=== PATIENT | male | born 1950 | race Hispanic/Latino ===

== ENCOUNTER → 2017-09-26 | Day surgery (SDC) | payer OTHER ==
[2017-09-19 10:48] LABS: BASOPHILS % 0.6 % (0.0-1.0); EOSINOPHILS # (AUTO) 0.2 (0.0-0.4); HEMATOCRIT 42.2 % (38.2-49.6); HEMOGLOBIN 14.8 g/dL (14.0-18.0); LYMPHOCYTES # (AUTO) 0.7 (1.0-3.2); LYMPHOCYTES % 13.8 % (18.0-39.1); MEAN CORPUSCULAR HEMOGLOBIN 37.2 pg (28-32); MEAN CORPUSCULAR HGB CONC 35.1 g/dL (31-35); MONOCYTES # (AUTO) 0.6 (0.2-0.8); MONOCYTES % 12.6 % (4.4-11.3); NEUTROPHILS # (AUTO) 3.5 (2.1-6.9); NEUTROPHILS % 69.6 % (38.7-80.0); PLATELET COUNT 72 x10e3/uL (140-360); RED BLOOD COUNT 3.98 x10e6/uL (4.3-5.7)
[2017-09-19 10:58] LABS: INR 1.21; PARTIAL THROMBOPLASTIN TIME 29.3 seconds (23.8-35.5); PROTHROMBIN TIME 14.4 seconds (11.9-14.5)
[2017-09-19 11:07] LABS: ALBUMIN 3.5 g/dL (3.5-5.0); ALBUMIN/GLOBULIN RATIO 0.7 (0.8-2.0); ANION GAP 13.4 mmol/L (8-16); CALCIUM 9.8 mg/dL (8.4-10.2); CREATININE, SERUM 1.22 mg/dL (0.72-1.25); POTASSIUM 5.4 mmol/L (3.5-5.1)
[~2017-09-26] MED LIST: AMLODIPINE BESY10 MG PO; BENAZEPRIL HCL10 MG PO; CARTIA XT240 MG PO; CONSTULOSE10 GM/15 M PO; FENTANYL CITRATE/PF 100MCG/2 ML INJ ONE; FUROSEMIDE20 MG PO; GLIMEPIRIDE2 MG PO; HYDROCHLOROTHIA25 MG PO; IPRATROPIU0.2 MG/1 M NEB; KETAMINE HCL INJ 50 MG/ML 10 ML VIAL ONE; LACTULOSE20 GM/30 M PO; LEVEMIR100 UNIT/1 SQ; LIDOCAINE HCL 2% LOCAL INJ 5 ML SDV VIAL INJ ONE; LISINOPRIL-HCT1 EAC2 PO; METFORMIN HCL500 MG PO; MIDAZOLAM HCL 2 MG/2 ML VIAL ONE; OMEPRAZOLE40 MG PO; PROPOFOL IV EMULSION 10 MG/ML 20 ML VIAL ONE; PROPRANOLOL HCL10 MG PO; SIMVASTATIN20 MG PO; SPIRONOLACTONE25 MG PO; XIFAXAN550 MG PO
== END | disposition home or self-care (01) ==
LOC: OR 05:30
PROVIDERS: ATTEND Internal Medicine Gastroenterology
DX: K70.30 Alcoholic cirrhosis of liver without ascites (principal); I85.10 Secondary esophageal varices without bleeding; K29.70 Gastritis, unspecified, without bleeding; K25.9 Gastric ulcer, unspecified as acute or chronic, without hemorrhage or perforation; K21.9 Gastro-esophageal reflux disease without esophagitis; K76.6 Portal hypertension; E66.9 Obesity, unspecified; E11.9 Type 2 diabetes mellitus without complications; I10 Essential (primary) hypertension; I44.0 Atrioventricular block, first degree; Z01.810 Encounter for preprocedural cardiovascular examination; Z01.812 Encounter for preprocedural laboratory examination; Z79.4 Long term (current) use of insulin; Z68.35 Body mass index [BMI] 35.0-35.9, adult; Z86.2 Personal history of diseases of the blood and blood-forming organs and certain disorders involving the immune mechanism; Z87.891 Personal history of nicotine dependence
CPT/HCPCS: 36415 ×2; 43244; 80053; 82948; 84132; 85025; 85610; 85730; 93005; J2001; J2250; 43239

== ENCOUNTER → 2018-02-07 | Outpatient (CLI) | payer MEDICARE, OTHER ==
[~2018-02-07] MED LIST changes: -FENTANYL CITRATE/PF 100MCG/2 ML INJ ONE; -KETAMINE HCL INJ 50 MG/ML 10 ML VIAL ONE; -LIDOCAINE HCL 2% LOCAL INJ 5 ML SDV VIAL INJ ONE; -MIDAZOLAM HCL 2 MG/2 ML VIAL ONE; -PROPOFOL IV EMULSION 10 MG/ML 20 ML VIAL ONE
--- NOTE | 2018-02-07 12:42 | Diagnostic Imaging Report ---
EXAM: Complete Abdominal Ultrasound INDICATION: Esophageal varices. Cirrhosis. COMPARISON: None. TECHNIQUE: Transverse and longitudinal images of the upper abdomen were obtained. FINDINGS: Liver: Size: 15.3 cm in the right midclavicular line, normal Appearance: Diffuse coarsened echotexture., Nodular contour Mass: No focal masses Spleen: Size: 14.8 cm in length, enlarged. Echogenicity: Normal Mass: No focal masses Gallbladder: Stones/Sludge: Multiple calculi. Wall: 0.3 cm Appearance: No wall thickening, pericholecystic fluid or hydrops. Sonographic Saldivar's Sign: Negative Bile Ducts: Intrahepatic Ducts: No dilatation Extrahepatic Ducts: Common bile duct measures 0.3 cm, no dilatation Pancreas: Not well visualized due to shadowing from overlying bowel gas. Kidneys: Length: Right 11.8 cm Left 12.8 cm Echogenicity: Normal Collecting System: No hydronephrosis Stone: None Cyst/Mass: None Vessels: Aorta: Not well visualized due to shadowing from overlying bowel gas. Inferior Vena Cava: Not well visualized due to shadowing from overlying bowel gas. Main Portal Vein: 0.9 cm, normal size with hepatopetal flow. Free Fluid: No ascites or pleural effusion IMPRESSION: 1. Cirrhotic hepatic morphology. No focal lesions identified. 2. Cholelithiasis. No biliary dilatation. 3. Mild splenomegaly. Signed by: Dr. Marisela Braun M.D. on 02/07/2018 12:38 PM
== END ==
LOC: US 11:46
PROVIDERS: ATTEND Internal Medicine Gastroenterology
DX: I85.00 Esophageal varices without bleeding (principal); K70.30 Alcoholic cirrhosis of liver without ascites; E11.9 Type 2 diabetes mellitus without complications; I10 Essential (primary) hypertension; E66.9 Obesity, unspecified; Z71.3 Dietary counseling and surveillance
CPT/HCPCS: 76700

== ENCOUNTER → 2018-04-10 | Day surgery (SDC) | payer MEDICARE, OTHER ==
[2018-04-07 10:43] LABS: BASOPHILS % 0.7 % (0.0-1.0); EOSINOPHILS # (AUTO) 0.2 (0.0-0.4); EOSINOPHILS % 3.4 % (0.0-6.0); HEMATOCRIT 41.9 % (38.2-49.6); LYMPHOCYTES # (AUTO) 0.6 (1.0-3.2); LYMPHOCYTES % 12.5 % (18.0-39.1); MEAN CORPUSCULAR HEMOGLOBIN 35.8 pg (28-32); MEAN CORPUSCULAR HGB CONC 33.4 g/dL (31-35); MEAN CORPUSCULAR VOLUME 107.2 fL (81-99); MONOCYTES # (AUTO) 0.5 (0.2-0.8); MONOCYTES % 11.4 % (4.4-11.3); NEUTROPHILS # (AUTO) 3.2 (2.1-6.9); NEUTROPHILS % 71.8 % (38.7-80.0); PLATELET COUNT 66 x10e3/uL (140-360); RED BLOOD COUNT 3.91 x10e6/uL (4.3-5.7); RED CELL DISTRIBUTION WIDTH 13.7 % (11.7-14.4)
[2018-04-07 10:47] LABS: PROTHROMBIN TIME 14.1 seconds (11.9-14.5)
[2018-04-07 10:48] LABS: PARTIAL THROMBOPLASTIN TIME 31.9 seconds (23.8-35.5)
[2018-04-07 10:54] LABS: ALBUMIN 3.2 g/dL (3.5-5.0); ALBUMIN/GLOBULIN RATIO 0.7 (0.8-2.0); ANION GAP 10.5 mmol/L (8-16); CALCIUM 8.3 mg/dL (8.4-10.2); CREATININE, SERUM 1.21 mg/dL (0.72-1.25); POTASSIUM 4.5 mmol/L (3.5-5.1)
[~2018-04-10] MED LIST changes: +DEXTROSE 5% 250ML 250 ML IV ONE; +FENTANYL CITRATE/PF 100MCG/2 ML INJ ONE; +GABAPENTIN300 MG PO; +LASIX20 MG PO; +MIDAZOLAM HCL 2 MG/2 ML VIAL ONE; +PROPOFOL IV EMULSION 10 MG/ML 50 ML VIAL ONE
--- OUTSIDE RECORDS SUMMARY | 2018-04-10 05:29 | XMS REPORT ---
Author [facility] Address Unknown Phone Unavailable Care Team Providers Care Scooter Mechanic Name Role Phone Susan SALMON Unavailable Unavailable Problems This patient has no known problems. Allergies, Adverse Reactions, Alerts This patient has no known allergies or adverse reactions. Medications This patient has no known medications. Results Test Description Test Time Test Comments Text Results Atomic Results Result Comments US ABDOMEN COMPLETE 2018-02-07 12:35:00 [place] [address] Patient Name: ORIN MYERS MR #: [id number] : 1950 Age/Sex: 67/M Req #: [id number] [facility] Physician: Ordered by: KIM SALMON MD Report #: [id number] Location: Room/Bed: Procedure: [id number] US/US ABDOMEN COMPLETE Exam Date: 02/07/18 Exam Time: 1157 REPORT STATUS: Signed EXAM: Complete Abdominal Ultrasound INDICATION: Esophageal varices. Cirrhosis. COMPARISON: None. TECHNIQUE: Transverse and longitudinal images of the upper abdomen were obtained. FINDINGS: Liver: Size: 15.3 cm in the right midclavicular line, normal Appearance: Diffuse coarsened echotexture., Nodular contour Mass: No focal masses Spleen: Size: 14.8 cm in length, enlarged. Echogenicity: Normal Mass: No focal masses Gallbladder: Stones/Sludge: Multiple calculi. Wall: 0.3 cm Appearance: No wall thickening, pericholecystic fluid or hydrops. Sonographic Saldivar's Sign: Negative Bile Ducts: Intrahepatic Ducts: No dilatation Extrahepatic Ducts: Common bile duct measures 0.3 cm, no dilatation Pancreas: Not well visualized due to shadowing from overlying bowel gas. Kidneys: Length: Right 11.8 cm Left 12.8 cm Echogenicity: Normal Collecting System: No hydronephrosis Stone: None Cyst/Mass: None Vessels: Aorta: Not well visualized due to shadowing from overlying bowel gas. Inferior Vena Cava: Not well visualized due to shadowing from overlying bowel gas. Main Portal Vein: 0.9 cm, normal size with hepatopetal flow. Free Fluid: No ascites or pleural effusion IMPRESSION: 1. Cirrhotic hepatic morphology. No focal lesions identified. 2. Cholelithiasis. No biliary dilatation. 3. Mild splenomegaly. Signed by: Dr. Marisela Garcia M.D. on 02/07/2018 12:38 PM Dictated By: MARIA FERNANDA GARCIA MD, MD [id number] Transcribed By: TUYET on 02/07/18 1238 COPY TO: KIM SALMON MD
[2018-04-10 08:05] VITALS: BP 149/84
== END | disposition home or self-care (01) ==
LOC: OR 05:27
PROVIDERS: ATTEND Internal Medicine Gastroenterology
DX: K70.30 Alcoholic cirrhosis of liver without ascites (principal); I85.10 Secondary esophageal varices without bleeding; K29.70 Gastritis, unspecified, without bleeding; K76.6 Portal hypertension; Z71.3 Dietary counseling and surveillance; E66.9 Obesity, unspecified; E11.9 Type 2 diabetes mellitus without complications; I10 Essential (primary) hypertension; K25.9 Gastric ulcer, unspecified as acute or chronic, without hemorrhage or perforation; I44.0 Atrioventricular block, first degree; F41.9 Anxiety disorder, unspecified; Z01.810 Encounter for preprocedural cardiovascular examination; Z01.812 Encounter for preprocedural laboratory examination; Z79.4 Long term (current) use of insulin; Z68.35 Body mass index [BMI] 35.0-35.9, adult; Z87.891 Personal history of nicotine dependence
CPT/HCPCS: 36415 ×2; 43244; 80053; 82948; 85025; 85610; 85730; 93005; J2250; J7070; 43239

== ENCOUNTER → 2018-10-23 | Day surgery (SDC) | payer MEDICARE, OTHER ==
[2018-10-13 11:36] LABS: BASOPHILS % 0.7 % (0.0-1.0); EOSINOPHILS # (AUTO) 0.2 (0.0-0.4); EOSINOPHILS % 4.5 % (0.0-6.0); HEMATOCRIT 39.5 % (38.2-49.6); HEMOGLOBIN 13.7 g/dL (14.0-18.0); LYMPHOCYTES # (AUTO) 0.6 (1.0-3.2); LYMPHOCYTES % 13.9 % (18.0-39.1); MEAN CORPUSCULAR HEMOGLOBIN 37.6 pg (28-32); MEAN CORPUSCULAR HGB CONC 34.7 g/dL (31-35); MEAN CORPUSCULAR VOLUME 108.5 fL (81-99); MONOCYTES # (AUTO) 0.4 (0.2-0.8); MONOCYTES % 8.9 % (4.4-11.3); NEUTROPHILS # (AUTO) 3.2 (2.1-6.9); NEUTROPHILS % 71.6 % (38.7-80.0); PLATELET COUNT 60 x10e3/uL (140-360); RED BLOOD COUNT 3.64 x10e6/uL (4.3-5.7); RED CELL DISTRIBUTION WIDTH 13.3 % (11.7-14.4)
[2018-10-13 11:48] LABS: INR 0.99; PROTHROMBIN TIME 13.6 seconds (11.9-14.5)
[2018-10-13 11:49] LABS: PARTIAL THROMBOPLASTIN TIME 25.6 seconds (23.8-35.5)
[2018-10-13 11:58] LABS: ALANINE AMINOTRANSFERASE 37 IU/L (0-55); ALBUMIN 3.3 g/dL (3.5-5.0); ALBUMIN/GLOBULIN RATIO 0.7 (0.8-2.0); ALKALINE PHOSPHATASE 200 IU/L (40-150); ANION GAP 15.1 mmol/L (8-16); BLOOD UREA NITROGEN 17 mg/dL (7-26); BUN/CREATININE RATIO 16 (6-25); CARBON DIOXIDE 22 mmol/L (22-29); CHLORIDE 103 mmol/L (98-107); CREATININE, SERUM 1.08 mg/dL (0.72-1.25); EST GLOMERULAR FILTRATION RATE > 60 ML/MIN (60-); GLUCOSE 198 mg/dL (74-118); POTASSIUM 4.1 mmol/L (3.5-5.1); SODIUM 136 mmol/L (136-145)
[~2018-10-23] MED LIST changes: -DEXTROSE 5% 250ML 250 ML IV ONE; -FENTANYL CITRATE/PF 100MCG/2 ML INJ ONE; -MIDAZOLAM HCL 2 MG/2 ML VIAL ONE
--- OUTSIDE RECORDS SUMMARY | 2018-10-23 05:33 | XMS REPORT | Summary of Care ---
Author Author [facility] Organization [facility] Address Unknown Phone Unavailable Encounter HQ [place](VICENTE) [id number] Date(s): 11/08/16 - 11/08/16 [facility] [address], [place] [address] [phone] Discharge Disposition: Home or Self Care Attending Physician: Saniya Kumari NP Referring Physician: Saniya Kumari NP Vital Signs No data available for this section Problem List Condition Effective Dates Status Health Status Informant Alcoholic cirrhosis Active of liver(Confirmed) Ascites(Confirmed) Active Esophageal varices Active with bleeding(Confirmed) Gallstones(Confirmed Resolved ) Anasarca(Confirmed) Active Chronic Active GERD(Confirmed) Encephalopathy, Active hepatic(Confirmed) High blood Active pressure(Confirmed) COPD, Active mild(Confirmed) Obesity(Confirmed) Active DM (diabetes Active mellitus), type 2(Confirmed) Allergies, Adverse Reactions, Alerts Substance Reaction Severity Status NKDA Active Medications No data available for this section Results No data available for this section Immunizations No data available for this section Procedures No data available for this section Social History Social History Type Response Alcohol Never Smoking Status Never smoker; Type: Cigarettes; Previous treatment: None; Ready to change: No; Concerns about tobacco use in household: No; Exposure to Tobacco Smoke None; Cigarette Smoking Last 365 Days No; Reg Smoking Cessation Counseling No Assessment and Plan No data available for this section
--- OUTSIDE RECORDS SUMMARY | 2018-10-23 05:33 | XMS REPORT | Summary of Care ---
Author Author [facility] Organization [facility] Address Unknown Phone Unavailable Encounter HQ [place](VICENTE) [id number] Date(s): 10/30/16 - 10/30/16 [facility] [address] [place] [address]- [facility] [phone] Discharge Disposition: Home or Self Care Attending Physician: Tremayne Glasgow MD Referring Physician: Tremayne Glasgow MD Vital Signs Most recent to 1 oldest [Reference Range]: Height 182.88 cm (10/30/16 10:48 AM) Weight 116.364 kg (10/30/16 10:48 AM) Body Mass Index 34.79 m2 (10/30/16 10:48 AM) Problem List Condition Effective Dates Status Health Status Informant Alcoholic cirrhosis Active of liver(Confirmed) Ascites(Confirmed) Active Bleeding esophageal Active varices(Confirmed) Esophageal varices Active with bleeding(Confirmed) Gallstones(Confirmed Resolved ) Anasarca(Confirmed) Active Chronic Active GERD(Confirmed) Encephalopathy, Active hepatic(Confirmed) High blood Active pressure(Confirmed) COPD, Active mild(Confirmed) Obesity(Confirmed) Active DM (diabetes Active mellitus), type 2(Confirmed) Allergies, Adverse Reactions, Alerts Substance Reaction Severity Status NKDA Active Medications No Known Medications Results No data available for this section [...]
--- OUTSIDE RECORDS SUMMARY | 2018-10-23 05:33 | XMS REPORT | Continuity of Care Document ---
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 abdominal aorta and iliac arteries. No aneurysm is present. Bones: Moderately severe osteophyte formation is present in the lower thoracic spine and thoracolumbar junction. There is bilateral L5 spondylolysis with grade 1 anterolisthesis of L5 on S1. No suspicious lytic or blastic lesions are present. Soft tissues: Normal. IMPRESSION: 1. Moderately scalloped margins of the liver suggest underlying cirrhosis. 2. Splenomegaly and dilatation of the portal vein which likely represent early signs of portal venous hypertension. 3. Cholelithiasis. 4. Bilateral L5 spondylolysis with grade 1 anterolisthesis of L5 on S1. 5. Low-density lesion in pancreatic tail possibly representing a cystic pancreatic lesion such as IPMN. Suggest routine cross-sectional surveillance. 03/28/2016 ANDREW Bray Consultation Notes No Data Provided for This Section Discharge Summaries No Data Provided for This Section History and Physicals No Data Provided for This Section Vital Signs Vital Sign Value Date Comments Source Height 182.88 cm 06/03/2018 [facility] BMI Calculated 35.54 06/03/2018 [facility] Weight 118.864 06/03/2018 [facility] Heart Rate 58 06/03/2018 [facility] Systolic (mm Hg) 130 06/03/2018 [facility] Diastolic (mm Hg) 69 06/03/2018 [facility] Height 182.88 cm 11/26/2017 [facility] Weight 119.364 11/26/2017 [facility] BMI Calculated 35.69 11/26/2017 [facility] Systolic (mm Hg) 131 11/26/2017 [facility] Diastolic (mm Hg) 63 11/26/2017 [facility] Heart Rate 58 11/26/2017 [facility] Respitory Rate 16 11/26/2017 [facility] Weight 114.545 05/07/2017 [facility] BMI Calculated 34.25 05/07/2017 [facility] Height 182.88 cm 05/07/2017 [facility] Respitory Rate 16 05/07/2017 [facility] Heart Rate 66 05/07/2017 [facility] Systolic (mm Hg) 154 05/07/2017 [facility] Diastolic (mm Hg) 78 05/07/2017 [facility] BMI Calculated 34.79 10/30/2016 [facility] Weight 116.364 10/30/2016 [facility] Height 182.88 cm 10/30/2016 [facility] Height 187.96 cm 07/03/2016 [facility] Weight 118.182 07/03/2016 [facility] BMI Calculated 33.45 07/03/2016 [facility] Systolic (mm Hg) 128 02/28/2016 [facility] Diastolic (mm Hg) 70 02/28/2016 [facility] Heart Rate 46 02/28/2016 [facility] Temperature Oral (F) 97.1 F 02/28/2016 [facility] Weight 111.08 02/28/2016 [facility] BMI Calculated 33.21 02/28/2016 [facility] Height 182.88 cm 02/28/2016 [facility] Weight 113.636 12/14/2015 [facility] Temperature Oral (F) 98.5 F 12/14/2015 [facility] Height 182.88 cm 12/14/2015 [facility] BMI Calculated 33.98 12/14/2015 [facility] Heart Rate 58 12/14/2015 [facility] Respitory Rate 16 12/14/2015 [facility] Systolic (mm Hg) 111 12/14/2015 [facility] Diastolic (mm Hg) 68 12/14/2015 [facility] Encounters Location Location Details Encounter Type Encounter Number Reason For Visit Attending Provider ADM Date DC Date Status Source [facility] Emergency [id number] Sajan Mascorro 12/14/2015 12/14/2015 [facility] Outpatient [id number] Tremayne Glasgow 02/28/2016 02/29/[address] [facility] Outpatient Imaging [facility] [id number] Tremayne Glasgow 03/28/2016 03/29/2016 [facility] Outpatient [id number] Tremayne Glasgow 07/03/2016 07/04/2016 [facility] Outpatient [id number] Tremayne Glasgow 10/30/2016 10/31/2016 [facility] Outpatient [id number] Saniya Kumari 11/08/2016 11/09/2016 [facility] Outpatient [id number] Tremayne Glasgow 05/07/2017 05/08/2017 [facility] Outpatient [id number] Tremayne Glasgow 05/21/2017 05/22/2017 [facility] Outpatient [id number] Tremayne Glasgow 11/26/2017 11/27/2017 [facility] Outpatient [id number] Tremayne Glasgow 12/03/2017 12/04/2017 [facility] [place] Outpatient [id number] Tremayne Glasgow 06/03/2018 06/04/[address] [facility] Outpatient Imaging [facility] Diag Services [id number] Tremayne Glasgow 06/18/2018 06/19/2018 [id number] Procedures Procedure Code Date Perfomer Comments Source Colonoscopy [id number] [facility] Procedure on ankle [id number] [facility] Procedure on bone of skull<sup>1</sup> [id number] [facility] Upper GI endoscopy [id number] [facility] Colonoscopy [id number] Procedure on ankle [id number] Procedure on bone of skull<sup>1</sup> [id number] [facility] [id number] Upper GI endoscopy [id number] Colonoscopy [id number] [facility] Procedure on ankle [id number] [facility] Procedure on bone of skull<sup>1</sup> [id number] [facility] Upper GI endoscopy [id number] [facility] Assessment and Plan No Data Provided for This Section Plan of Care No Data Provided for This Section Social History Social History Date Source Social History TypeResponse Alcohol Never Smoking Status Former smoker; Type: Cigarettes; Previous treatment: None; Ready to change: No; Concerns about tobacco use in household: No; Exposure to Tobacco Smoke None; Cigarette Smoking Last 365 Days No; Reg Smoking Cessation Counseling No1 entered on: 06/03/18 1Quit smoking 3-4 years 07/03/2016 [facility] Social History TypeResponse Alcohol Never Smoking Status Former smoker; Type: Cigarettes; Previous treatment: None; Ready to change: No; Concerns about tobacco use in household: No; Exposure to Tobacco Smoke None; Cigarette Smoking Last 365 Days No; Reg Smoking Cessation Counseling No1 entered on: 06/03/18 1Quit smoking 3-4 years 07/03/2016 [facility] Social History TypeResponse Alcohol Never Smoking Status Former smoker; Type: Cigarettes; Previous treatment: None; Ready to change: No; Concerns about tobacco use in household: No; Exposure to Tobacco Smoke None; Cigarette Smoking Last 365 Days No; Reg Smoking Cessation Counseling No1 entered on: 06/03/18 1Quit smoking 3-4 years 07/03/2016 [id number] Social History TypeResponse Smoking Status Never smoker; Type: Cigarettes; Previous treatment: None; Ready to change: No; Concerns about tobacco use in household: No; Exposure to Tobacco Smoke None; Cigarette Smoking Last 365 Days No; Reg Smoking Cessation Counseling No 02/28/2016 ANDREW Bray Family History No Data Provided for This Section Advance Directives No Data Provided for This Section Functional Status No Data Provided for This Section
--- OUTSIDE RECORDS SUMMARY | 2018-10-23 05:34 | XMS REPORT | Summary of Care ---
Author Author [facility] Organization [facility] Address Unknown Phone Unavailable Encounter ZACK Franco(VICENTE) [id number] Date(s): 12/14/15 - 12/14/15 [facility] [address] [facility] provided by [facility] [place] [address]- Discharge Diagnosis: Leg swelling Discharge Diagnosis: Penile swelling Discharge Disposition: Home or Self Care Attending Physician: Sajan Mascorro MD Admitting Physician: Sajan Mascorro MD Vital Signs Most recent to 1 oldest [Reference Range]: Height 182.88 cm (12/14/15 1:28 AM) Temperature Oral 98.5 DegF [96.4-99.1 DegF] (12/14/15 1:28 AM) Blood Pressure 111/68 mmHg [90-140/60-90 mmHg] (12/14/15 1:28 AM) Respiratory Rate 16 BRMIN [14-20 BRMIN] (12/14/15 1:28 AM) Peripheral Pulse 58 bpm Rate [60-100 bpm] *LOW* (12/14/15 1:28 AM) Weight 113.636 kg (12/14/15 1:28 AM) Body Mass Index 33.98 m2 (12/14/15 1:28 AM) Problem List Condition Effective Dates Status Health Status Informant Chronic liver Active failure(Confirmed) Allergies, Adverse Reactions, Alerts Substance Reaction Severity Status NKDA Active Medications No data available for this section Results No data available for this section Immunizations No data available for this section Procedures No data available for this section Social History Social History Type Response Smoking Status Never smoker; Type: Cigarettes; Previous treatment: None; Ready to change: No; Concerns about tobacco use in household: No; Exposure to Tobacco Smoke None; Cigarette Smoking Last 365 Days No; Reg Smoking Cessation Counseling No Assessment and Plan No data available for this section
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
--- OUTSIDE RECORDS SUMMARY | 2018-10-23 05:34 | XMS REPORT | Summary of Care ---
Author Author [facility] Organization [facility] Address Unknown Phone Unavailable Encounter ZACK Franco(VICENTE) [id number] Date(s): 05/07/17 - 05/07/17 [facility] [address] [phone] Encounter Diagnosis Nonalcoholic steatohepatitis (AWAD) (Final) - 05/13/17 Unspecified cirrhosis of liver (Final) - Secondary esophageal varices with bleeding (Final) - Hepatic failure, unspecified without coma (Final) - Other ascites (Final) - Bradycardia, unspecified (Final) - Discharge Disposition: Home or Self Care Attending Physician: Tremayne Glasgow MD Referring Physician: Tremayne Glasgow MD Vital Signs Most recent to 1 oldest [Reference Range]: Height 182.88 cm (05/07/17 9:56 AM) Blood Pressure 154/78 mmHg [90-140/60-90 mmHg] *HI* (05/07/17 9:56 AM) Respiratory Rate 16 BRMIN [14-20 BRMIN] (05/07/17 9:56 AM) Peripheral Pulse 66 bpm Rate [60-100 bpm] (05/07/17 9:56 AM) Weight 114.545 kg (05/07/17 9:56 AM) Body Mass Index 34.25 m2 (05/07/17 9:56 AM) Problem List Condition Effective Dates Status Health Status Informant Alcoholic cirrhosis Active of liver(Confirmed) Ascites(Confirmed) Active Esophageal varices Active with bleeding(Confirmed) Gallstones(Confirmed Resolved ) Anasarca(Confirmed) Active Chronic Active GERD(Confirmed) Encephalopathy, Active hepatic(Confirmed) High blood Active pressure(Confirmed) COPD, Active mild(Confirmed) Obesity(Confirmed) Active DM (diabetes Active mellitus), type 2(Confirmed) Allergies, Adverse Reactions, Alerts Substance Reaction Severity Status NKDA Active Medications amLODIPine 10 mg oral tablet 10 mg=1 tab, PO, Daily, # 30 tab, 0 Refill(s) Start Date: 05/07/17 Status: Ordered spironolactone 25 mg oral tablet 25 mg=1 tab, PO, BID, # 30 tab, 3 Refill(s) Start Date: 05/07/17 Stop Date: 06/06/17 Status: Ordered Results No data available for this section [...] Days No; Reg Smoking Cessation Counseling No entered on: 05/07/17 Assessment and Plan No data available for this section
--- OUTSIDE RECORDS SUMMARY | 2018-10-23 05:34 | XMS REPORT | Summary of Care ---
Author Author [facility] Organization [facility] Address Unknown Phone Unavailable Encounter ZACK Franco(VICENTE) [id number] Date(s): 02/28/16 - 02/28/16 [facility] [address] [place] [address]- [facility] [phone] Discharge Disposition: Home or Self Care Attending Physician: Tremayne Glasgow MD Referring Physician: Tremayne Glasgow MD Vital Signs Most recent to 1 oldest [Reference Range]: Height 182.88 cm (02/28/16 7:51 AM) Temperature Oral 97.1 DegF [96.4-99.1 DegF] (02/28/16 7:51 AM) Blood Pressure 128/70 mmHg [90-140/60-90 mmHg] (02/28/16 7:51 AM) Peripheral Pulse 46 bpm Rate [60-100 bpm] *LOW* (02/28/16 7:51 AM) Weight 111.08 kg (02/28/16 7:51 AM) Body Mass Index 33.21 m2 (02/28/16 7:51 AM) Problem List Condition Effective Dates Status Health Status Informant Alcoholic cirrhosis Active of liver(Confirmed) Ascites(Confirmed) Active Bleeding esophageal Active varices(Confirmed) Esophageal varices Active with bleeding(Confirmed) Gallstones(Confirmed Resolved ) Anasarca(Confirmed) Active Chronic Active GERD(Confirmed) High blood Active pressure(Confirmed) COPD, Active mild(Confirmed) Obesity(Confirmed) Active DM (diabetes Active mellitus), type 2(Confirmed) Allergies, Adverse Reactions, Alerts Substance Reaction Severity Status NKDA Active Medications ferrous sulfate 325 mg oral enteric coated tablet 325 mg=1 tab, PO, Daily, 0 Refill(s) Start Date: 02/28/16 Stop Date: 02/28/16 Status: Discontinued folic acid 1 mg oral tablet 1 mg=1 tab, PO, Daily, 0 Refill(s) Start Date: 02/28/16 Stop Date: 02/28/16 Status: Discontinued furosemide 80 mg oral tablet 80 mg=1 tab, PO, Daily, 0 Refill(s) Start Date: 02/28/16 Status: Ordered glimepiride 4 mg oral tablet 4 mg=1 tab, PO, Daily, 0 Refill(s) Start Date: 02/28/16 Status: Ordered Levemir FlexPen 10 unit, SUB-Q, 0 Refill(s) Start Date: 02/28/16 Status: Ordered omeprazole 40 mg oral delayed release capsule 40 mg=1 cap, PO, BID, 0 Refill(s) Start Date: 02/28/16 Status: Ordered propranolol 10 mg oral tablet 10 mg=1 tab, PO, BID, 0 Refill(s) Start Date: 02/28/16 Status: Ordered simvastatin 20 mg oral tablet 20 mg=1 tab, PO, Bedtime, 0 Refill(s) Start Date: 02/28/16 Status: Ordered Results No data available for [...]
--- OUTSIDE RECORDS SUMMARY | 2018-10-23 05:34 | XMS REPORT | Summary of Care ---
Author Author [facility] Organization [facility] Address Unknown Phone Unavailable Encounter ZACK Franco(VICENTE) [id number] Date(s): 05/07/17 - 05/07/17 [facility] [address] [phone] Encounter Diagnosis Nonalcoholic steatohepatitis (AWAD) (Final) - 05/13/17 Unspecified cirrhosis of liver (Final) - Secondary esophageal varices with bleeding (Final) - Hepatic failure, unspecified without coma (Final) - Other ascites (Final) - Bradycardia, unspecified (Final) - Discharge Disposition: Home or Self Care Attending Physician: Trmeayne Glasgow MD Referring Physician: Tremayne Glasgow MD [...]
--- OUTSIDE RECORDS SUMMARY | 2018-10-23 05:34 | XMS REPORT | Summary of Care ---
Author Author [facility] Organization [facility] Address Unknown Phone Unavailable Encounter ZACK Franco(VICENTE) [id number] Date(s): 11/26/17 - 11/26/17 [facility] [address] [place] [address]- [facility] [phone] Encounter Diagnosis Chronic obstructive pulmonary disease, unspecified [...] Daily, # 30 tab, 3 Refill(s), Pharmacy: [facility] Start Date: 04/03/18 Status: Ordered furosemide 20 mg oral tablet 20 mg=1 tab, PO, Daily, # 30 tab, 3 Refill(s), Pharmacy: [facility] Start Date: 12/06/17 Stop Date: 04/03/18 Status: Completed spironolactone 25 mg oral tablet 50 mg=2 tab, PO, Daily, # 60 tab, 3 Refill(s), Pharmacy: [facility] Start Date: 12/06/17 Stop Date: 04/05/18 [...] PM) Albumin Lvl [3.5-5.0 3.5 g/dL g/dL] (11/26/17:25 PM) Globulin [2.7-4.2 4.6 g/dL g/dL] *HI* (11/26/17:25 PM) A/G Ratio [0.7-1.6] 0.8 (11/26/17:25 PM) Calcium Lvl 8.6 mg/dL [8.5-10.5 mg/dL] (11/26/17:25 PM) ALT [0-65 unit/L] 56 unit/L (11/26/17 [...] (11/26/17:25 PM) Hgb [14.0-18.0 g/dL] 14.2 g/dL (11/26/17:25 PM) Hct [42.0-54.0 %] 40.7 % *LOW* [...] PM) Lymphocytes 13.6 % [20.0-40.0 %] *LOW* (11/26/17:25 PM) Monocytes [2.0-12.0 11.0 % %] (11/26/17 [...] Reg Smoking Cessation Counseling No entered on: 11/26/17 Assessment and Plan No data available for this section
--- OUTSIDE RECORDS SUMMARY | 2018-10-23 05:34 | XMS REPORT | Summary of Care ---
Author Author [facility] Organization [facility] Address Unknown Phone Unavailable Encounter ZACK Franco(VICENTE) [id number] Date(s): 05/21/17 - 05/21/17 [facility] [address] [place] [address]- Encounter Diagnosis Generalized edema (Final) - 05/24/17 Alcoholic cirrhosis of liver with ascites (Final) - Hepatic failure, unspecified without coma (Final) - Calculus of gallbladder without cholecystitis without obstruction (Final) - Splenomegaly, not elsewhere classified (Final) - Spondylolysis, lumbosacral region (Final) - Atherosclerotic heart disease of [place] coronary artery without angina pectoris (Final) - Discharge Disposition: Home or Self Care Attending Physician: Tremayne Glasgow MD Referring Physician: Tremayne Glasgow MD Vital Signs No data available for this [...] Substance Reaction Severity Status NKDA Active Medications Omnipaque 350 100 mL, Route: IV, Drug Form: SOLN, ONCALL, Start date: 05/21/17 21:00:00 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 Immunizations No data available for this section [...]
--- OUTSIDE RECORDS SUMMARY | 2018-10-23 05:34 | XMS REPORT | Summary of Care ---
Author Author [facility] Organization [facility] Address Unknown Phone Unavailable Encounter ZACK Franco(VICENTE) [id number] Date(s): 05/21/17 - 05/21/17 [facility] [address] [place] [address]- [phone] Encounter Diagnosis Generalized edema (Final) - 05/24/17 Alcoholic cirrhosis of liver with ascites (Final) - Hepatic failure, unspecified without coma (Final) - Calculus of gallbladder without cholecystitis without obstruction (Final) - Splenomegaly, not elsewhere classified (Final) - Spondylolysis, lumbosacral region (Final) - Atherosclerotic heart disease of [place] coronary artery without angina pectoris (Final) - [...] Form: SOLN, ONCALL, Start date: 05/21/17 21:00:00 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
--- OUTSIDE RECORDS SUMMARY | 2018-10-23 05:34 | XMS REPORT | Summary of Care ---
Author Author [facility] Organization [facility] Address Unknown Phone Unavailable Encounter HQ Salvador(FIN) [id number] Date(s): 12/03/17 - 12/03/17 [facility] [address] [place] [address]- [phone] Encounter Diagnosis Alcoholic cirrhosis of liver without ascites (Final) - 02/15/18 Calculus of gallbladder without cholecystitis without obstruction (Final) - Unspecified cirrhosis of liver (Final) - Discharge Disposition: Home or Self Care Attending Physician: Tremayne Glasgow MD Admitting Physician: Tremayne Glasgow MD Referring Physician: Tremayne [...]
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
--- OUTSIDE RECORDS SUMMARY | 2018-10-23 05:34 | XMS REPORT | Summary of Care ---
Author Author [facility] Organization [facility] Address Unknown Phone Unavailable Encounter HQ Salvador(VICENTE) [id number] Date(s): 03/28/16 - 03/28/16 [facility] [address] [place] [phone] Discharge Disposition: Home or Self Care Attending Physician: Tremayne Glasgow MD Vital Signs No [...]
--- OUTSIDE RECORDS SUMMARY | 2018-10-23 05:34 | XMS REPORT | Summary of Care ---
Author Author [facility] Organization [facility] Address Unknown Phone Unavailable Encounter HQ Marti_brenda(FIN) [id number] Date(s): 06/18/18 - 06/18/18 [facility] [address] [place] [id number] Discharge Disposition: Home or Self Care Attending [...]
[2018-10-23 08:10] VITALS: BP 101/58
== END | disposition home or self-care (01) ==
LOC: OR 05:15
PROVIDERS: ATTEND Internal Medicine Gastroenterology
DX: I85.00 Esophageal varices without bleeding (principal); E66.9 Obesity, unspecified; Z68.34 Body mass index [BMI] 34.0-34.9, adult; E11.9 Type 2 diabetes mellitus without complications; Z71.3 Dietary counseling and surveillance; I10 Essential (primary) hypertension; F17.200 Nicotine dependence, unspecified, uncomplicated; Z01.810 Encounter for preprocedural cardiovascular examination; Z01.812 Encounter for preprocedural laboratory examination; I25.10 Atherosclerotic heart disease of native coronary artery without angina pectoris; K29.70 Gastritis, unspecified, without bleeding; Z79.4 Long term (current) use of insulin
CPT/HCPCS: 36415 ×2; 43244; 80053; 82948; 85025; 85610; 85730; 93005; J2704; 43255

== ENCOUNTER → 2019-08-28 | Day surgery (SDC) | payer MEDICARE, OTHER ==
[2019-08-25 10:04] LABS: BASOPHILS % 0.4 % (0.0-1.0); EOSINOPHILS # (AUTO) 0.2 (0.0-0.4); EOSINOPHILS % 3.3 % (0.0-6.0); HEMATOCRIT 35.6 % (38.2-49.6); LYMPHOCYTES # (AUTO) 0.4 (1.0-3.2); LYMPHOCYTES % 8.8 % (18.0-39.1); MEAN CORPUSCULAR HEMOGLOBIN 36.3 pg (28-32); MEAN CORPUSCULAR HGB CONC 33.7 g/dL (31-35); MEAN CORPUSCULAR VOLUME 107.6 fL (81-99); MONOCYTES # (AUTO) 0.6 (0.2-0.8); MONOCYTES % 12.6 % (4.4-11.3); NEUTROPHILS # (AUTO) 3.7 (2.1-6.9); NEUTROPHILS % 74.7 % (38.7-80.0); PLATELET COUNT 58 x10e3/uL (140-360); RED BLOOD COUNT 3.31 x10e6/uL (4.3-5.7); RED CELL DISTRIBUTION WIDTH 14.5 % (11.7-14.4)
[2019-08-25 10:32] LABS: ALBUMIN 3.1 g/dL (3.5-5.0); ALBUMIN/GLOBULIN RATIO 0.7 (0.8-2.0); ANION GAP 12.5 mmol/L (8-16); CALCIUM 8.7 mg/dL (8.4-10.2); CREATININE, SERUM 1.48 mg/dL (0.72-1.25); POTASSIUM 4.5 mmol/L (3.5-5.1)
[2019-08-25 10:37] LABS: INR 1.04; PARTIAL THROMBOPLASTIN TIME 32.7 seconds (23.8-35.5); PROTHROMBIN TIME 14.2 seconds (11.9-14.5)
[~2019-08-28] MED LIST changes: +LIDOCAINE HCL 2% LOCAL INJ 5 ML SDV VIAL INJ ONE; +MIDAZOLAM HCL 2 MG/2 ML VIAL ONE; +MULTI-VITAMIN1 EACH PO; +PROPOFOL IV EMULSION 10 MG/ML 20 ML VIAL ONE; -PROPOFOL IV EMULSION 10 MG/ML 50 ML VIAL ONE
[2019-08-28 07:30] VITALS: BP 106/58
== END | disposition home or self-care (01) ==
LOC: OR 05:08
PROVIDERS: ATTEND Internal Medicine Gastroenterology
DX: K74.60 Unspecified cirrhosis of liver (principal); I85.10 Secondary esophageal varices without bleeding; K31.7 Polyp of stomach and duodenum; K29.50 Unspecified chronic gastritis without bleeding; K44.9 Diaphragmatic hernia without obstruction or gangrene; K76.6 Portal hypertension; Z71.3 Dietary counseling and surveillance; E66.9 Obesity, unspecified; E11.22 Type 2 diabetes mellitus with diabetic chronic kidney disease; I12.9 Hypertensive chronic kidney disease with stage 1 through stage 4 chronic kidney disease, or unspecified chronic kidney disease; N18.9 Chronic kidney disease, unspecified; Z01.810 Encounter for preprocedural cardiovascular examination; Z01.812 Encounter for preprocedural laboratory examination; Z01.818 Encounter for other preprocedural examination; Z79.84 Long term (current) use of oral hypoglycemic drugs; Z79.4 Long term (current) use of insulin; Z68.36 Body mass index [BMI] 36.0-36.9, adult
CPT/HCPCS: 36415 ×2; 43235; 80053; 82948; 85025; 85610; 85730; 87635; 93005; J2001; J2250; J2704